=== PATIENT | male | born 1975 | race Caucasian/White ===

== ENCOUNTER 2018-05-01 17:08 | Emergency (ER) | payer OTHER ==
[~2018-05-01] VITALS: Ht 180.3 cm; Wt 70.3 kg
[~2018-05-01 17:08] MED LIST: ADULT LOW DOSE81 MG PO; AMOXICILLIN; BACTRIM DS TAB1 EACH PO; FLEXERIL PO; HYDROCODON-ACE1 EAC7 PO; MOBIC7.5 M1 PO; NAPROSYN375 MG PO; NAPROSYN500 MG PO; NOHOMEMEDICATIONS; NORCO 5-325 TA1 EACH PO; NORFLEX100 MG PO; PERCOCET 5-3251 EACH PO; PREDNISONE 20 M20 M1 PO; ROBAXIN 750 MG750 MG PO
[2018-05-01 17:58] VITALS: BP 125/86
== END 2018-05-01 17:59 | disposition home or self-care (01) ==
LOC: M.ERS 17:08
DX: S20.211A Contusion of right front wall of thorax, initial encounter (principal); S40.811A Abrasion of right upper arm, initial encounter; W13.8XXA Fall from, out of or through other building or structure, initial encounter; Y93.89 Activity, other specified; Y92.89 Other specified places as the place of occurrence of the external cause; Y99.8 Other external cause status

== ENCOUNTER 2018-09-06 11:58 | Emergency (ER) | payer OTHER ==
[~2018-09-06] VITALS: Ht 180.3 cm; Wt 70.3 kg
[2018-09-06] MEDS ORDERED: ASPIR 8181 MG PO (12:11)
[2018-09-06] MEDS ORDERED: KEFLEX500 M1 PO (12:26)
[2018-09-06 12:34] VITALS: BP 124/88
== END 2018-09-06 12:34 | disposition home or self-care (01) ==
LOC: M.ERS 11:58
DX: S60.465A Insect bite (nonvenomous) of left ring finger, initial encounter (principal); I25.2 Old myocardial infarction; Z86.14 Personal history of Methicillin resistant Staphylococcus aureus infection; F17.210 Nicotine dependence, cigarettes, uncomplicated; W57.XXXA Bitten or stung by nonvenomous insect and other nonvenomous arthropods, initial encounter; Y93.89 Activity, other specified; Y92.89 Other specified places as the place of occurrence of the external cause; Y99.8 Other external cause status

== ENCOUNTER 2020-11-30 19:43 | Emergency (ER) | payer OTHER ==
[~2020-11-30] VITALS: Ht 165.1 cm; Wt 69.8 kg
[~2020-11-30 19:43] MED LIST changes: +ASPIR 8181 MG PO; +KEFLEX500 M1 PO
[2020-11-30 20:35] LABS: ABSOLUTE BASOPHILS 0.1 thou/uL (0.0-0.2); ABSOLUTE EOSINOPHILS 0.1 thou/uL (0.0-0.7); ABSOLUTE LYMPHOCYTES 2.4 thou/uL (0.8-5.3); ABSOLUTE MONOCYTES 0.6 thou/uL (0.0-1.2); ABSOLUTE NEUTROPHILS 6.1 thou/uL (1.6-8.1); BASOPHILS 0.9 %; EOSINOPHILS 1.1 %; HEMATOCRIT 44.5 % (42.0-52.0); HEMOGLOBIN 14.8 gm/dL (14.0-18.0); MCH 30.8 pg (26.0-34.0); MCHC 33.3 g/dL (28.0-37.0); MCV 92.4 fL (80.0-100.0); MONOCYTES 6.8 %; NUCLEATED RBCS 0 /100WBC; PLATELET COUNT* 281 thou/uL (150-400); POLYS 65.2 %; RBC 4.82 mil/uL (4.50-6.00); RDW-CV 13.5 % (10.5-14.5); WBC 9.4 thou/uL (4.0-11.0)
[2020-11-30 20:46] LABS: CREATININE 0.9 mg/dL (0.6-1.3)
[2020-11-30 20:47] LABS: APTT 25.9 Seconds (25.0-31.3); PROTIME 10.9 Seconds (9.20-11.50)
[2020-11-30 20:55] LABS: TOTAL BILIRUBIN 0.4 mg/dL (<0.1-1.0); TOTAL PROTEIN 6.9 g/dL (6.4-8.2)
[2020-11-30 23:27] VITALS: BP 112/76
[2020-11-30] MEDS ORDERED: CARAFATE 1 GM TA1 GM PO (23:46)
--- NOTE | 2020-12-01 11:04 | EKG ---
[place] [id number] ELECTROCARDIOGRAM REPORT Name: OLEKSANDR CONTRERAS Room: [facility]#: [id number] Admission: 11/30/20 Attend Phys: Discharge: 11/30/20 Date of : 73 Date of Service: 11/30/201948 Report #: [id number] THIS REPORT FOR: //name// [facility] ED Test Date: 2020-11-30 Test Time: 19:49:00 Pat Name: OLEKSANDR CONTRERAS Department: Room: Gender: Gunnery/Ordnance Officer: : 1975 Requested By: Lucy Frazier Order Number: [id number] MD: Chris Marks Measurements Intervals [place] Rate: 50 P: 28 OR: 168 QRS: 64 QRSD: 89 T: 51 QT: 404 QTc: 369 Interpretive Statements Sinus bradycardia RSR' in V1 or V2, probably normal variant Consider left ventricular hypertrophy ST elev, probable normal early repol pattern Compared to ECG 08/14/2015 14:40:43 RSR' in V1 or V2 now present Electronically Signed On 12-01-2020 11:04:06 CDT by Chris Marks [email or web address] <ELECTRONICALLY SIGNED> By: Chris Marks MD, FACC 12/01/20 1104 48 48 Chris Marks MD, FACC /EPI
== END 2020-11-30 23:50 | disposition home or self-care (01) ==
LOC: M.ERS 19:43
PROVIDERS: Personal Emergency Response Attendant
DX: R07.89 Other chest pain (principal); J44.9 Chronic obstructive pulmonary disease, unspecified; F17.210 Nicotine dependence, cigarettes, uncomplicated; Z86.14 Personal history of Methicillin resistant Staphylococcus aureus infection

== ENCOUNTER 2021-05-25 11:53 | Emergency (ER) | payer OTHER, MEDICAID ==
[~2021-05-25] VITALS: Ht 180.3 cm; Wt 74.8 kg
[~2021-05-25 11:53] MED LIST changes: +CARAFATE 1 GM TA1 GM PO
[2021-05-25] MEDS ORDERED: CEPHALEXIN500 MG PO (13:12)
[2021-05-25 13:43] VITALS: BP 124/72
== END 2021-05-25 13:44 | disposition home or self-care (01) ==
LOC: M.ERS 11:53
DX: S61.211A Laceration without foreign body of left index finger without damage to nail, initial encounter (principal); I25.2 Old myocardial infarction; J44.9 Chronic obstructive pulmonary disease, unspecified; F17.210 Nicotine dependence, cigarettes, uncomplicated; Z88.5 Allergy status to narcotic agent; W45.8XXA Other foreign body or object entering through skin, initial encounter; Y93.89 Activity, other specified; Y92.89 Other specified places as the place of occurrence of the external cause; Y99.8 Other external cause status

== ENCOUNTER 2021-07-11 23:02 | Emergency (ER) | payer OTHER, MEDICAID ==
[~2021-07-11] VITALS: Ht 180.3 cm; Wt 72.6 kg
[~2021-07-11 23:02] MED LIST changes: +CEPHALEXIN500 MG PO
[2021-07-12 00:16] LABS: ABSOLUTE BASOPHILS 0.1 thou/uL (0.0-0.2); ABSOLUTE EOSINOPHILS 0.2 thou/uL (0.0-0.7); ABSOLUTE LYMPHOCYTES 2.8 thou/uL (0.8-5.3); ABSOLUTE MONOCYTES 0.7 thou/uL (0.0-1.2); ABSOLUTE NEUTROPHILS 4.9 thou/uL (1.6-8.1); BASOPHILS 0.9 %; HEMATOCRIT 43.1 % (42.0-52.0); HEMOGLOBIN 14.7 gm/dL (14.0-18.0); LYMPHOCYTES 32.1 %; MCH 31.7 pg (26.0-34.0); MCHC 34.2 g/dL (28.0-37.0); MCV 92.5 fL (80.0-100.0); MONOCYTES 8.1 %; MPV 7.4 fl. (7.2-11.1); NUCLEATED RBCS 0 /100WBC; PLATELET COUNT* 271 thou/uL (150-400); POLYS 56.9 %; RBC 4.66 mil/uL (4.50-6.00); RDW-CV 13.3 % (10.5-14.5); WBC 8.7 thou/uL (4.0-11.0)
[2021-07-12 00:24] LABS: CALCIUM 8.6 mg/dL (8.5-10.1); CREATININE 0.9 mg/dL (0.6-1.3); POTASSIUM 3.6 mmol/L (3.5-5.1)
[2021-07-12 00:33] LABS: ALBUMIN 3.5 g/dL (3.4-5.0); TOTAL BILIRUBIN 0.2 mg/dL (<0.1-1.0); TOTAL PROTEIN 6.3 g/dL (6.4-8.2)
[2021-07-12] MEDS ORDERED: CARAFATE 1 GM TA1 GM PO (04:44)
[2021-07-12] MEDS ORDERED: OMEPRAZOLE40 MG PO (04:44)
[2021-07-12 05:00] VITALS: BP 106/78
--- NOTE | 2021-07-12 11:48 | EKG ---
[place] [address] ELECTROCARDIOGRAM REPORT Name: OLEKSANDR CONTRERAS Room: [facility]#: [id number] Admission: 07/11/21 Attend Phys: Discharge: 07/12/21 Date of : 73 Date of Service: 07/11/212302 Report #: [id number] THIS REPORT FOR: //name// [facility] ED Test Date: 2021-07-11 Test Time: 23:03:48 Pat Name: OLEKSANDR CONTRERAS Department: Room: Gender: Dispensary Attendant: : 1975 Requested By: Lucy Frazier Order Number: [id number] MD: Lorenzo Fairbanks Measurements Intervals [place] Rate: 60 P: 16 [place]: 187 QRS: 55 QRSD: 96 T: 39 QT: 380 QTc: 380 Interpretive Statements Sinus rhythm RSR' in V1 or V2, probably normal variant ST elev, probable normal early repol pattern Compared to ECG 11/30/2020 19:49:00 Sinus bradycardia no longer present ST (T wave) deviation still present Electronically Signed On 07-12-2021 11:48:10 [employer] by Lorenzo Fairbanks [email or web address] <ELECTRONICALLY SIGNED> By: Lorenzo Fairbanks MD, FACC 07/12/21 1148 [id number] Lorenzo Fairbanks MD, FACC /EPI
== END 2021-07-12 05:00 | disposition home or self-care (01) ==
LOC: M.ERS 23:02
PROVIDERS: Personal Emergency Response Attendant
DX: R07.89 Other chest pain (principal); J44.9 Chronic obstructive pulmonary disease, unspecified; F17.210 Nicotine dependence, cigarettes, uncomplicated; Z88.5 Allergy status to narcotic agent

== ENCOUNTER 2021-08-30 07:36 | Emergency (ER) | payer OTHER, MEDICAID ==
[~2021-08-30] VITALS: Ht 180.3 cm; Wt 79.4 kg
[~2021-08-30 07:36] MED LIST changes: +OMEPRAZOLE40 MG PO
[2021-08-30 07:41] VITALS: BP 142/97
== END 2021-08-30 09:53 | disposition home or self-care (01) ==
LOC: M.ERS 07:36
DX: K08.89 Other specified disorders of teeth and supporting structures (principal); I25.2 Old myocardial infarction; J44.9 Chronic obstructive pulmonary disease, unspecified; F17.210 Nicotine dependence, cigarettes, uncomplicated; Z79.899 Other long term (current) drug therapy; Z88.5 Allergy status to narcotic agent